=== PATIENT | male | born 1985 | race American Indian/Alaskan Native ===

== ENCOUNTER 2020-12-22 22:15 | Emergency (ER) | payer OTHER ==
[2020-12-22] MEDS ORDERED: Cephalexin 500 MG Cap PO ONE (22:58)
--- NOTE | 2020-12-22 23:08 | EDM.PDOC ---
ED HPI GENERAL MEDICAL PROBLEM - General Chief Complaint: Skin Complaint Stated Complaint: ABSCESS IN STOMACH Time Seen by Provider: 12/22/20 22:50 Source of Information: Reports: Patient History Limitations: Reports: No Limitations - History of Present Illness INITIAL COMMENTS - FREE TEXT/NARRATIVE: This 35 yo male patient reports to the ED due to an abscess on his abdomen that opened up. The patient was seen in the clinic 5 days ago for the abscess and was started on Doxycycline. The patient came in tonight due to the abscess opening and draining. The patient reports less pain at this time. Onset: Today Duration: Constant Location: Reports: Abdomen (left lower) Quality: Reports: Ache, Dull Severity: Moderate Improves with: Reports: None Worsens with: Reports: None Context: Reports: Other Associated Symptoms: Reports: No Other Symptoms Left Groin Pain Score (Numeric/FACES): 5 - Related Data Allergies Allergy/AdvReac Type Severity Reaction Status Date / Time No Known Allergies Allergy Verified 11/15/17 03:12 Home Meds: Home Meds Doxycycline [Doxycycline Monohydrate] 100 mg PO DAILY 12/22/20 [History] Ibuprofen [Motrin] 400 mg PO QID PRN 12/22/20 [History] Past Medical History HEENT History: Reports: None Cardiovascular History: Reports: None Respiratory History: Reports: None Gastrointestinal History: Reports: None Genitourinary History: Reports: None Musculoskeletal History: Reports: Back Pain, Chronic, Other (See Below) Other Musculoskeletal History: R knee pain, chronic Neurological History: Reports: None Psychiatric History: Reports: Anxiety, Depression, PTSD, Suicidal Ideation Endocrine/Metabolic History: Reports: None Hematologic History: Reports: None Immunologic History: Reports: None Oncologic (Cancer) History: Reports: None Dermatologic History: Reports: None - Infectious Disease History Infectious Disease History: Reports: Chicken Pox, Novel Coronavirus - Past Surgical History Head Surgeries/Procedures: Reports: None Male Surgical History: Reports: Other (See Below) Other Male Surgeries/Procedures: testicular torsion repair Social & Family History - Family History Family Medical History: No Pertinent Family History - Tobacco Use Tobacco Use Status *Q: Former Tobacco User Used Tobacco, but Quit: Yes Month/Year Tobacco Last Used: 11/2020 - Caffeine Use Caffeine Use: Reports: None - Recreational Drug Use Recreational Drug Use: No ED ROS GENERAL - Review of Systems Review Of Systems: Comprehensive ROS is negative, except as noted in HPI. ED EXAM, SKIN/RASH Exam: See Below Exam Limited By: No Limitations General Appearance: Alert, WD/WN, Mild Distress Eye Exam: Bilateral Eye: EOMI, Normal Inspection, PERRL Ears: Normal External Exam Nose: Normal Inspection Throat/Mouth: Normal Inspection, Normal Lips, Normal Teeth, Normal Voice, No Airway Compromise Head: Atraumatic, Normocephalic Neck: Full Range of Motion Respiratory/Chest: No Respiratory Distress, Lungs Clear, Normal Breath Sounds, No Accessory Muscle Use, Chest Non-Tender Cardiovascular: Regular Rate, Rhythm GI/Abdominal: Tender (left lower abdomen) (Male) Exam: Deferred Rectal (Males) Exam: Deferred Back Exam: Normal Inspection, Full Range of Motion, NT Extremities: Normal Inspection, Normal Range of Motion, Non-Tender, No Pedal Edema, Normal Capillary Refill Neurological: Alert, Oriented, CN II-XII Intact, Normal Cognition, Normal Gait, Normal Reflexes, No Motor/Sensory Deficits Skin: Warm, Dry, Erythema, Wound/Incision Location, Skin: Abdomen Characteristics: Erythematous Associated features: Warmth, Tenderness, Swelling, Induration, Inflammation, Weeping Lymphatic: No Adenopathy Course - Vital Signs Last Recorded V/S: Last Vital Signs Temp 97.8 F 12/22/20 22:39 Pulse 83 12/22/20 22:39 Resp 18 12/22/20 22:39 BP 115/81 12/22/20 22:39 Pulse Ox 98 12/22/20 22:39 - Orders/Labs/Meds Meds: Medications Discontinued Medications Generic Name Dose Route Start Last Admin Trade Name Lars PRN Reason Stop Dose Admin Cephalexin 500 mg 12/22/20 22:58 Cephalexin 500 Mg Cap PO 12/22/20 22:59 ONETIME ONE Departure - Departure Time of Disposition: 23:06 Disposition: Home, Self-Care 01 Condition: Fair Clinical Impression: Abscess - Discharge Information *PRESCRIPTION DRUG MONITORING PROGRAM REVIEWED*: Not Applicable *COPY OF PRESCRIPTION DRUG MONITORING REPORT IN PATIENT SAUD: Not Applicable Instructions: Skin Abscess Care Plan Goals: The patient was advises of the examination results during the visit. The patient was advised to stop the Doxycycline. The patient was given an oral dose of Keflex (500 mg) while in the ED. The patient was discharged with a script for Keflex (500 mg) #30 to take 1 by mouth 3 times per day for 10 days. If the patient has any additional symptoms or concerns, the patient should either return to the emergency department or visit his primary care facility. Sepsis Event Note (ED) - Evaluation Sepsis Screening Result: No Definite Risk - Focused Exam Vital Signs: Vital Signs Temp Pulse Resp BP Pulse Ox 12/22/20 22:39 97.8 F 83 18 115/81 98
== END 2020-12-22 23:00 | disposition home or self-care (01) ==
LOC: DL.ED 22:15
DX: L02.211 Cutaneous abscess of abdominal wall (principal); Z87.891 Personal history of nicotine dependence
CPT/HCPCS: 87070; 99283; A9270-GY

== ENCOUNTER 2021-01-05 10:33 | Emergency (ER) | payer OTHER ==
--- NOTE | 2021-01-05 11:13 | EDM.PDOCBH ---
ED HPI GENERAL MEDICAL PROBLEM - General Chief Complaint: Behavioral/Psych Stated Complaint: IN BY AMBULANCE Time Seen by Provider: 01/05/21 11:07 Source of Information: Reports: Patient, RN, RN Notes Reviewed History Limitations: Reports: No Limitations - History of Present Illness INITIAL COMMENTS - FREE TEXT/NARRATIVE: Janes is a 35 y/o male with a history of depression and anxiety with panic who presents to the ED via [facility] with complaints of panic attack. The patient reports his symptoms began abruptly about 1.5 hours prior to admission to this facility. He notes racing heart, paraesthesia of the face/ears/hands, increase work of breathing, and nausea; he states all of these symptoms are typical of his panic attacks and all of these symptoms have since resolved since he took his BuSpar. The patient states he called EMS as he noted a new symptom of dizziness during the episode which has lingered. He attests to a COVID infection from which he recovered without complication. He denies recent head trauma, fever, shaking chills, chest pain, vomiting, or diarrhea. The patient notes he has a prescription for lorazepam for episodes of panic, but he does not like to take "mind altering" medications. Additionally, the patient reports he has been working 12 hours shifts as a [place] [employer] for the past 18 days without a break; he is concerned he is experiencing mental exhaustion. - Related Data Allergies Allergy/AdvReac Type Severity Reaction Status Date / Time No Known Allergies Allergy Verified 01/05/21 10:52 Home Meds: Home Meds Ibuprofen [Motrin] 400 mg PO QID PRN 12/22/20 [History] busPIRone [Buspar] 5 mg PO ASDIRECTED PRN 01/05/21 [History] Past Medical History HEENT History: Reports: None Cardiovascular History: Reports: None Respiratory History: Reports: None Gastrointestinal History: Reports: None Genitourinary History: Reports: None Musculoskeletal History: Reports: Back Pain, Chronic, Other (See Below) Other Musculoskeletal History: R knee pain, chronic Neurological History: Reports: None Psychiatric History: Reports: Anxiety, Depression, PTSD, Suicidal Ideation Endocrine/Metabolic History: Reports: None Hematologic History: Reports: None Immunologic History: Reports: None Oncologic (Cancer) History: Reports: None Dermatologic History: Reports: None - Infectious Disease History Infectious Disease History: Reports: Chicken Pox, Novel Coronavirus - Past Surgical History Head Surgeries/Procedures: Reports: None Male Surgical History: Reports: Other (See Below) Other Male Surgeries/Procedures: testicular torsion repair Social & Family History - Family History Family Medical History: No Pertinent Family History - Tobacco Use Tobacco Use Status *Q: Current Every Day Tobacco User Years of Tobacco use: 10 Packs/Tins Daily: 1 - Caffeine Use Caffeine Use: Reports: None - Recreational Drug Use Recreational Drug Use: No ED ROS GENERAL - Review of Systems Review Of Systems: Comprehensive ROS is negative, except as noted in HPI. ED EXAM, BEHAVIORAL HEALTH - Physical Exam Exam: See Below Exam Limited By: No Limitations General Appearance: Alert, No Apparent Distress Eye Exam: Bilateral Eye: EOMI, Nystagmus (Lateral jerk), PERRL (3mm) Ears: Normal External Exam, Normal Canal, Hearing Grossly Normal, Normal TMs Nose: Normal Inspection, Normal Mucosa, No Blood Throat/Mouth: Normal Inspection, Normal Lips, Normal Teeth, Normal Gums, Normal Oropharynx, Normal Voice, No Airway Compromise Head: Atraumatic, Normocephalic Neck: Normal Inspection, Supple, Non-Tender, Full Range of Motion. No: Lymphadenopathy (L), Lymphadenopathy (R) Respiratory/Chest: No Respiratory Distress, Lungs Clear, Normal Breath Sounds, No Accessory Muscle Use, Chest Non-Tender Cardiovascular: Normal Peripheral Pulses, Regular Rate, Rhythm, No Edema, No Gallop, No JVD, No Murmur, No Rub GI/Abdominal: Normal Bowel Sounds, Soft, Non-Tender, No Distention, No Abnormal Bruit, No Mass, Pelvis Stable (Male) Exam: Deferred Rectal (Males) Exam: Deferred Back Exam: Normal Inspection, Full Range of Motion Extremities: Normal Inspection, Normal Range of Motion, Non-Tender, No Pedal Edema, Normal Capillary Refill Neurological: Alert, Normal Mood/Affect, CN II-XII Intact, Normal Cognition, Normal Reflexes, No Motor/Sensory Deficits, Oriented x 3, Opens Eyes to Commands, Withdraws to Pain. No: Memory Loss Remote Events, Memory Loss Recent Events, Tongue Deviation (L), Tongue Deviation (R), Slow Response to Commands, Facial Palsy (R), Facial Palsy (L), Facial Palsy w Forehead, Pronator Drift (R), Pronator Drift (L), Abnormal Light Touch, Abnormal Motor, Abnormal Pin Prick, Abn 2 Pt Discrimination Psychiatric: Alert, Normal Affect, Normal Cognition, Normal Mood, Oriented, Poor Eye Contact. No: Restless, Agitated, Inattentive, Withdrawn, Homicidal Thoughts, Suicidal Plan, Suicidal Thoughts, Auditory Hallucinations, Visual Hallucinations, Pressured Speech, Paranoid Thoughts, Threatening Behavior Skin Exam: Warm, Dry, Intact, Normal color, No rash. No: Cyanosis, Ecchymosis, Erythema, Jaundice, Mottled, Pallor COURSE, BEHAVIORAL HEALTH COMP - Course Vital Signs: Last Vital Signs Temp 97.7 F 01/05/21 10:33 Pulse 80 01/05/21 10:33 Resp 20 01/05/21 10:33 BP 125/88 01/05/21 10:33 Pulse Ox 100 01/05/21 10:33 Orders, Labs, Meds: Laboratory Tests 01/05/21 01/05/21 01/05/21 Range/Units 10:50 10:50 11:15 WBC 9.0 (5.0-10.0) 10^3/uL RBC 5.35 (4.6-6.2) 10^6/uL Hgb 15.6 (14.0-18.0) g/dL Hct 46.4 (40.0-54.0) % MCV 86.7 (80-100) fL MCH 29.2 (27.0-34.0) pg MCHC 33.6 (33.0-35.0) g/dL Plt Count 306 (150-450) 10^3/uL Neut % (Auto) 51.4 (42.2-75.2) % Lymph % (Auto) 36.3 (20.5-50.1) % [place] % (Auto) 8.9 H (2-8) % Eos % (Auto) 2.8 (1.0-3.0) % Baso % (Auto) 0.6 (0.0-1.0) % Sodium (136-145) mmol/L Potassium (3.5-5.1) mmol/L Chloride (98-107) mmol/L Carbon Dioxide (21-32) mmol/L Anion Gap (7-13) mEq/L BUN (7-18) mg/dL Creatinine (0.70-1.30) mg/dL Est Cr Clr Drug Dosing mL/min Estimated GFR (MDRD) BUN/Creatinine Ratio (No establ ref range) Glucose (70-99) mg/dL Calcium (8.5-10.1) mg/dL Total Bilirubin (0.2-1.0) mg/dL AST (15-37) U/L ALT (16-63) U/L Alkaline Phosphatase (46-116) U/L Total Protein (6.4-8.2) g/dL Albumin (3.4-5.0) g/dL Globulin Albumin/Globulin Ratio Urine Color Yellow (YELLOW) Urine Appearance Clear (CLEAR) Urine pH 7.0 (5.0-9.0) Ur Specific [place] 1.010 (1.005-1.030) Urine Protein Negative (NEGATIVE) Urine Glucose (UA) Negative (NEGATIVE) Urine Ketones Negative (NEGATIVE) Urine Occult Blood Moderate H (NEGATIVE) Urine Nitrite Negative (NEGATIVE) Urine Bilirubin Negative (NEGATIVE) Urine Urobilinogen 0.2 (0.2-1.0) mg/dL Ur Leukocyte Esterase Negative (NEGATIVE) Urine RBC 5-10 H /HPF Urine WBC Not seen (0-5/HPF) /HPF Ur Epithelial Cells Not seen (NOT SEEN) /HPF Urine Bacteria Not seen (0-FEW/HPF) /HPF Urine Opiates Screen Negative (NEGATIVE) Ur Oxycodone Screen Negative (NEGATIVE) Urine Methadone Screen Negative (NEGATIVE) Ur Barbiturates Screen Negative (NEGATIVE) U Tricyclic Antidepress Negative (NEGATIVE) Ur Phencyclidine Scrn Negative (NEGATIVE) Ur Amphetamine Screen Negative (NEGATIVE) U Methamphetamines Scrn Negative (NEGATIVE) Urine MDMA Screen Negative (NEGATIVE) U Benzodiazepines Scrn Negative (NEGATIVE) Urine Cocaine Screen Negative (NEGATIVE) U Marijuana (THC) Screen Negative (NEGATIVE) Ethyl Alcohol (0) mg/dL 01/05/21 Range/Units 11:15 WBC (5.0-10.0) 10^3/uL RBC (4.6-6.2) 10^6/uL Hgb (14.0-18.0) g/dL Hct (40.0-54.0) % MCV (80-100) fL MCH (27.0-34.0) pg MCHC (33.0-35.0) g/dL Plt Count (150-450) 10^3/uL Neut % (Auto) (42.2-75.2) % Lymph % (Auto) (20.5-50.1) % [place] % (Auto) (2-8) % Eos % (Auto) (1.0-3.0) % Baso % (Auto) (0.0-1.0) % Sodium 143 (136-145) mmol/L Potassium 3.4 L (3.5-5.1) mmol/L Chloride 105 (98-107) mmol/L Carbon Dioxide 28 (21-32) mmol/L Anion Gap 13.4 H (7-13) mEq/L BUN 10 (7-18) mg/dL Creatinine 0.84 (0.70-1.30) mg/dL Est Cr Clr Drug Dosing 123.91 mL/min Estimated GFR (MDRD) > 60 BUN/Creatinine Ratio 11.9 (No establ ref range) Glucose 88 (70-99) mg/dL Calcium 8.4 L (8.5-10.1) mg/dL Total Bilirubin 0.4 (0.2-1.0) mg/dL AST 12 L (15-37) U/L ALT 26 (16-63) U/L Alkaline Phosphatase 92 (46-116) U/L Total Protein 7.5 (6.4-8.2) g/dL Albumin 3.5 (3.4-5.0) g/dL Globulin 4.0 Albumin/Globulin Ratio 0.9 Urine Color (YELLOW) Urine Appearance (CLEAR) Urine pH (5.0-9.0) Ur Specific [place] (1.005-1.030) Urine Protein (NEGATIVE) Urine Glucose (UA) (NEGATIVE) Urine Ketones (NEGATIVE) Urine Occult Blood (NEGATIVE) Urine Nitrite (NEGATIVE) Urine Bilirubin (NEGATIVE) Urine Urobilinogen (0.2-1.0) mg/dL Ur Leukocyte Esterase (NEGATIVE) Urine RBC /HPF Urine WBC (0-5/HPF) /HPF Ur Epithelial Cells (NOT SEEN) /HPF Urine Bacteria (0-FEW/HPF) /HPF Urine Opiates Screen (NEGATIVE) Ur Oxycodone Screen (NEGATIVE) Urine Methadone Screen (NEGATIVE) Ur Barbiturates Screen (NEGATIVE) U Tricyclic Antidepress (NEGATIVE) Ur Phencyclidine Scrn (NEGATIVE) Ur Amphetamine Screen (NEGATIVE) U Methamphetamines Scrn (NEGATIVE) Urine MDMA Screen (NEGATIVE) U Benzodiazepines Scrn (NEGATIVE) Urine Cocaine Screen (NEGATIVE) U Marijuana (THC) Screen (NEGATIVE) Ethyl Alcohol < 3 (0) mg/dL Re-Assessment/Re-Exam: 01/05/21 Findings of examination and lab work reviewed with patient. Discussed supportive cares for panic, including possible need for control therapy. Red flag signs and symptoms which would warrant reevaluation reviewed. Patient verbalized understanding and agreement with the plan of care. Departure - Departure Time of Disposition: 11:52 Disposition: Home, Self-Care 01 Condition: Good Clinical Impression: Panic attack Hematuria Qualifiers: Hematuria type: asymptomatic microscopic Qualified Code(s): R31.21 - Asymptomatic microscopic hematuria - Discharge Information *PRESCRIPTION DRUG MONITORING PROGRAM REVIEWED*: Not Applicable *COPY OF PRESCRIPTION DRUG MONITORING REPORT IN PATIENT SAUD: Not Applicable Instructions: Managing Anxiety, Adult Forms: ED Department Discharge Additional Instructions: 1.) Follow up with primary mental health provider regarding today's visit; consider management of anxiety with daily control medication (Paxil, Zoloft) 2.) Continue with breathing techniques and "grounding" measures for episodes of panic. 3.) Rest. 4.) Return to the emergency department with any return of symptoms that do not reduce with medications. Sepsis Event Note (ED) - Evaluation Sepsis Screening Result: No Definite Risk - Focused Exam Vital Signs: Vital Signs Temp Pulse Resp BP Pulse Ox 01/05/21 10:33 97.7 F 80 20 125/88 100
[2021-01-05 11:46] LABS: ANION GAP 13.4 mEq/L (7-13); CHLORIDE,CL 105 mmol/L (98-107); SODIUM,NA 143 mmol/L (136-145)
== END 2021-01-05 12:28 | disposition home or self-care (01) ==
LOC: DL.ED 10:33
DX: F41.0 Panic disorder [episodic paroxysmal anxiety] (principal); R31.21 Asymptomatic microscopic hematuria; Z72.0 Tobacco use; Z86.16 Personal history of COVID-19
CPT/HCPCS: 36415; 80053; 80305-QW; 80307; 81001; 85025; 99283; 99284